=== PATIENT | female | born 1935 | race Caucasian/White ===

== ENCOUNTER 2017-03-24 05:05 | Inpatient (IN) | payer OTHER ==
[2017-03-11 13:53] LABS: BASOPHILS 0.4 %; BASOPHILS ABSOLUTE 0.03 10/3/uL (0.0-0.16); EOSINOPHILS 3.1 %; EOSINOPHILS ABSOLUTE 0.23 10/3/uL (0.0-0.53); IMMATURE GRANULOCYTES 0.3 %; IMMATURE GRANULOCYTES ABSOLUTE 0.02 10/3/uL (0.0-0.11); LYMPHOCYTES ABSOLUTE 1.55 10/3/uL (0.67-4.30); MEAN CORPUS HGB CONC 32.3 g/dL (32.0-36.0); MEAN PLATELET VOLUME 9.8 fL (9.2-13.0); MONOCYTES 7.7 %; MONOCYTES ABSOLUTE 0.57 10/3/uL (0.21-1.20); NEUTROPHILS 67.5 %; NEUTROPHILS ABSOLUTE 4.99 10/3/uL (2.02-8.40); PLATELET COUNT 224 10/3/uL (150-400); RBC DISTRIBUTION WIDTH 14.1 % (12.0-16.0); RED CELL COUNT 4.13 10/6/uL (4.0-5.6)
[2017-03-11 13:55] LABS: HEMOGLOBIN 12.6 g/dL (12.0-16.0); MANUAL DIFF NO %; MEAN CORPUSCULAR HEMOGLOB 30.5 pg (26.0-34.0); MEAN CORPUSCULAR VOLUME 94.4 fL (80-100); WHITE BLOOD CELLS 7.4 10/3/uL (4.5-10.5)
[2017-03-11 13:58] LABS: INTERNATIONAL NORMAL RATI 0.9 UNITS (-)
[2017-03-11 14:00] LABS: ASCORBIC ACID (UR NOT ORDER) NEG (NEG); BILIRUBIN, URINE NEGATIVE (NEG); KETONE, URINE NEGATIVE (NEG); LEUKOCYTE ESTERASE(NOT OR LARGE (NEG); PROTIME (NOT ORD) 12.2 SEC (12.0-14.5); WBC (NOT ORDERED) (RFLEX) 16 (0-5)
[2017-03-11 14:19] LABS: A/G RATIO 1.4 (0.7-1.9); ALBUMIN 4.1 G/DL (3.5-5.0); ALKALINE PHOSPHATASE 45 U/L (45-117); BUN (BLOOD UREA NITROGEN) 16 MG/DL (6-23); CALCIUM, SERUM 10.4 MG/DL (8.5-10.4); CHLORIDE, SERUM 102 MMOL/L (96-112); CREATININE 1.02 MG/DL (0.55-1.02); GFR AFRICAN AMERICAN 59 ML/MIN (>=60); GFR NON AFRICAN AMERICAN 51 ML/MIN (>=60); POTASSIUM, SERUM 4.7 MMOL/L (3.5-5.3); SGOT(AST) 16 U/L (5-40); SGPT(ALT) 24 U/L (5-65); SODIUM, SERUM 139 MMOL/L (135-148); TOTAL BILIRUBIN 0.4 MG/DL (0-1.2); TOTAL PROTEIN 7.1 G/DL (6.0-8.5)
[2017-03-11 14:20] LABS: CO2 (CARBON DIOXIDE) 32 MMOL/L (24-34); GLUCOSE, SERUM 85 MG/DL (60-99)
--- NOTE | ~2017-03-24 | DS ---
Discharge Summary [facility] [address] [place]. [address] NAME: TODD LANZA : 34 STATUS : DIS IN PAT#: [id number] AGE: 81 ADM/REG DATE : 03/24/17 MR#: [id number] REPORT SERV DATE: 04/08/17 DICTATED BY: BARB HAYNES DATE: 04/07/17 REPORT STATUS : Draft TRANSCRIBED BY: CAITLYN DATE: 04/07/17 Data Collection from hospitalization DISCHARGE DIAGNOSES: 1. Severe left knee degenerative joint disease. 2. Hypertension. 3. Diabetes. 4. Gastric ulcers. 5. Hypercholesterolemia. 6. Hypothyroidism. 7. Gastroesophageal reflux disease. CONSULTATIONS: None. PROCEDURES PERFORMED: Left posterior stabilized total knee replacement, cemented, 03/24/2017. PATHOLOGY: Bone and soft tissue, left knee joint arthroplasty - degenerative joint disease. DISCHARGE MEDICATIONS: Cymbalta 60 mg every morning, Nexium 40 mg every evening, [place] 7.5/325 one to two tablets every 4 to 6 hours as needed, Lantus 35 units subcutaneously twice a day, Humalog as instructed, levothyroxine 88 mcg every morning, Prinivil 20 mg twice a day, Crestor 10 mg at bedtime, Senokot one tablet at bedtime as needed, and Coumadin 2.5 mg daily. CONDITION ON DISCHARGE: Stable. DISPOSITION: The patient was discharged home on an 1800-calorie diabetic diet with activities as instructed. She would follow up with ak, 04/07/2017. She would follow up at the [facility] for physical therapy, 03/31/2017, and lab work, 03/31/2017. HOSPITAL COURSE: This is an 81-year-old female who has a long history of severe left knee pain. She denies any history of injury to the knee. The pain is located in the medial and lateral aspects of the knee. X-rays had revealed severe left knee degenerative joint disease. Treatment options were discussed, and it was elected to proceed with surgical intervention. She was admitted to the hospital at this time for further evaluation and treatment. Upon admission, she was taken to the operating room where she underwent the above-mentioned procedure. She tolerated this well, and there were no complications. On postop day #1, she was up sitting in a bedside chair. RAD hose were in place. Blood pressure was controlled. She was evaluated by Occupational and Physical Therapy. On postop day #2, she was feeling well but did have some dizziness, fatigue, and did not feel very well. She was transfused one unit of packed red blood cells. Discharge planning was performed. On 03/27/2017, she was alert and cooperative. Discharge instructions were given. Due to her improved and stable condition, she was discharged home with the above-stated instructions. Discharge Summary [address] [address] NAME: TODD LANZA : 34 STATUS : DIS IN PAT#: [id number] AGE: 81 ADM/REG DATE : 03/24/17 MR#: [id number] REPORT SERV DATE: 04/08/17 DICTATED BY: BARB HAYNES DATE: 04/07/17 REPORT STATUS : Draft TRANSCRIBED BY: CAITLYN DATE: 04/07/17 Information collected by: Rupa Evans I submit the above information as my discharge summary. CHARO/CAITLYN Syeda Haynes M.D. / [id number] CC: Prem Nascimento M.D.
--- NOTE | ~2017-03-24 | OP ---
Record Of Operation [facility] [address] [place]. [address] NAME: TODD LANZA : 34 STATUS : ADM IN PAT#: [id number] AGE: 81 ADM/REG DATE : 03/24/17 MR#: [id number] REPORT SERV DATE: 03/24/17 DICTATED BY: BARB HAYNES DATE: 03/24/17 REPORT STATUS : Draft TRANSCRIBED BY: MODRao DATE: 03/24/17 DATE OF PROCEDURE: 03/24/2017 PREOPERATIVE DIAGNOSIS: Severe left knee degenerative joint disease. POSTOPERATIVE DIAGNOSIS: Severe left knee degenerative joint disease. OPERATION: Left posterior stabilized total knee replacement, cemented. SIDE: Left. SIZE: See chart. ANESTHESIA: See chart. ESTIMATED BLOOD LOSS: About 10 mL. TOURNIQUET TIME: Approximately 1 hour and 10 minutes. COMPLICATIONS: None. SPECIMENS: Articular surfaces. PROCEDURE IN DETAIL: The patient was appropriately identified and marked. The operative side agreed with the consent form and it was checked by all members of the surgical team. The patient was taken to the operating room and anesthesia was induced per the anesthesiologist. The patient was carefully transferred to the operating table without incident. The patient received appropriate prophylactic antibiotics and a Luz catheter was placed in the standard sterile technique. The patient was then carefully positioned, padded, prepped and draped in the normal sterile fashion. The operative leg had been appropriately identified and checked by all members of the operating team against the consent form and found to be the correct limb. The patient's lower extremity was then exsanguinated with an Carlito wrap and a tourniquet was inflated to 350 mm/Hg. Sharp dissection was carried out through a straight midline longitudinal incision and electrocautery through the fat. Sharp quad splitting approach was carried out between about the medial 10 percent of the tendon and the lateral 90 percent of the tendon and down around the medial aspect of the patella and then 1 cm medial to the tibial tubercle. The patella was carefully everted and the posterior fat pad was excised and gentle MCL elevation was carried out off the proximal medial tibia subperiosteally. IM guide was placed in the distal femur after using the appropriate drill. The distal femoral cutting guide was held with 2 pins and the distal cut made. Meniscal fragments and the ACL and the PCL were excised with electrocautery, carefully staying anterior to the posterior fat pad. The proximal tibial alignment guide was set appropriately and the proximal tibial cut made. Spacer block verified full extension with excellent mediolateral balance. Sizing guide was used to place 2 drill holes in the distal femur and the four-in-one cutting block was then placed, impacted and checked Record Of Operation [facility] [address] [place]. [address] NAME: TODD LANZA : 34 STATUS : ADM IN PAT#: [id number] AGE: 81 ADM/REG DATE : 03/24/17 MR#: [id number] REPORT SERV DATE: 03/24/17 DICTATED BY: BARB HAYNES DATE: 03/24/17 REPORT STATUS : Draft TRANSCRIBED BY: CAITLYN DATE: 03/24/17 to be sure it would not notch with an mariaelena wing and it was held with 2 pins. The anterior cut, posterior cut, anterior chamfer and posterior chamfer cuts were made. The pins were removed and the block was removed. A posterior release was carried out with a curved 3/4 inch osteotome staying right on the bone posteriorly. The box-cut guide was then placed, impacted and held with 2 pins and a reciprocating saw was used to cut out the box. With the trial components in place, there was excellent medial/lateral balance. The patella was then measured with a caliper, cut first with an oscillating saw and then reamed with a patella reamer. With the trial patella in place, there was excellent patellar tracking. Rotation was marked on the tibia and the tibia prepared with a drill and stamp chisel. All surfaces were then copiously irrigated with pulsatile lavage, carefully dried and then vacuum-mixed cement was pressurized with a cement gun in a doughy phase. The tibial component was placed, impacted and excess cement was removed. The cement was then pressurized in the femur and placed on the posterior runners of the femoral component, which was placed, impacted and excess cement removed and the knee was brought out into extension on a trial spacer. The cement was then pressurized in the patella. Patellar component was then placed, clamped and excess cement was removed. Once all cement was hardened, the knee was taken through range of motion. Further extruded cement was removed with a small osteotome. Then based on the trial inserts, we decided on the actual insert, which was placed in the standard fashion and held with a locking mechanism. The knee was then copiously irrigated and then closed in a layered fashion over a medium Hemovac drain superolaterally with interrupted #1 in the deep fascia, 2-0 subcutaneous and nadya in the skin. The wounds were dressed sterilely and the tourniquet was deflated. The patient was then awakened and taken to the postanesthesia care unit without incident. All counts were correct at the end of the case. YULIB/CAITLYN Syeda Haynes M.D. / [id number] CC: Syeda Haynes M.D.
[~2017-03-24 05:05] MED LIST: ACET500CAP PO; ADVIL PO; ATIVAN2 MG PO; CRESTOR10 PO; CYMBALTA60 PO; DOXEPIN HCL150 MG PO; FORTAMET500 MG PO; GLUCPH PO; HUMALOGPEN SC; IND25 PO; LANTUS SC; LEVOTHYROXIN100 MCG PO; LEVOTHYROXIN88 MCG PO; MIDRIN PO; MULTIPLE VIT PO; NEXIUM40 PO; NIASPAN500 PO; OGEN.625 PO; PRIN20 PO; PROTEIN SUPPLEMENT PO; SENOKOTS PO; SENTAB PO; SYN075 PO; ZOL100 PO
[2017-03-25 04:56] LABS: INTERNATIONAL NORMAL RATI 1.1 UNITS (-); PROTIME (NOT ORD) 13.6 SEC (12.0-14.5)
[2017-03-25 05:01] LABS: HEMATOCRIT 26.8 % (36.0-48.0); HEMOGLOBIN 9.2 g/dL (12.0-16.0)
[2017-03-25 05:06] LABS: BUN (BLOOD UREA NITROGEN) 16 MG/DL (6-23); CALCIUM, SERUM 9.5 MG/DL (8.5-10.4); CHLORIDE, SERUM 101 MMOL/L (96-112); CO2 (CARBON DIOXIDE) 27 MMOL/L (24-34); CREATININE 1.08 MG/DL (0.55-1.02); GFR AFRICAN AMERICAN 55 ML/MIN (>=60); GFR NON AFRICAN AMERICAN 48 ML/MIN (>=60); GLUCOSE, SERUM 118 MG/DL (60-99); POTASSIUM, SERUM 4.6 MMOL/L (3.5-5.3); SODIUM, SERUM 135 MMOL/L (135-148)
[2017-03-26 06:57] LABS: INTERNATIONAL NORMAL RATI 1.1 UNITS (-); PROTIME (NOT ORD) 13.9 SEC (12.0-14.5)
[2017-03-26 07:05] LABS: HEMATOCRIT 22.8 % (36.0-48.0)
[2017-03-27 05:31] LABS: BASOPHILS 0.1 %; BASOPHILS ABSOLUTE 0.01 10/3/uL (0.0-0.16); EOSINOPHILS 2.7 %; EOSINOPHILS ABSOLUTE 0.19 10/3/uL (0.0-0.53); HEMATOCRIT 27.3 % (36.0-48.0); HEMOGLOBIN 9.3 g/dL (12.0-16.0); IMMATURE GRANULOCYTES 0.7 %; IMMATURE GRANULOCYTES ABSOLUTE 0.05 10/3/uL (0.0-0.11); LYMPHOCYTES ABSOLUTE 1.49 10/3/uL (0.67-4.30); MANUAL DIFF NO %; MEAN CORPUS HGB CONC 34.1 g/dL (32.0-36.0); MEAN CORPUSCULAR HEMOGLOB 30.5 pg (26.0-34.0); MEAN CORPUSCULAR VOLUME 89.5 fL (80-100); MEAN PLATELET VOLUME 9.6 fL (9.2-13.0); MONOCYTES 10.8 %; MONOCYTES ABSOLUTE 0.77 10/3/uL (0.21-1.20); NEUTROPHILS 64.7 %; NEUTROPHILS ABSOLUTE 4.59 10/3/uL (2.02-8.40); PLATELET COUNT 159 10/3/uL (150-400); RBC DISTRIBUTION WIDTH 15.1 % (12.0-16.0); RED CELL COUNT 3.05 10/6/uL (4.0-5.6); WHITE BLOOD CELLS 7.1 10/3/uL (4.5-10.5)
[2017-03-27 05:33] LABS: INTERNATIONAL NORMAL RATI 1.1 UNITS (-); PROTIME (NOT ORD) 14.1 SEC (12.0-14.5)
[2017-03-27 05:39] LABS: BUN (BLOOD UREA NITROGEN) 16 MG/DL (6-23); CALCIUM, SERUM 9.1 MG/DL (8.5-10.4); CHLORIDE, SERUM 101 MMOL/L (96-112); CO2 (CARBON DIOXIDE) 29 MMOL/L (24-34); CREATININE 0.81 MG/DL (0.55-1.02); GFR AFRICAN AMERICAN 78 ML/MIN (>=60); GFR NON AFRICAN AMERICAN 68 ML/MIN (>=60); GLUCOSE, SERUM 108 MG/DL (60-99); POTASSIUM, SERUM 4.1 MMOL/L (3.5-5.3); SODIUM, SERUM 136 MMOL/L (135-148)
[2017-03-27] MEDS ORDERED: C25 PO (15:27)
[2017-03-27] MEDS ORDERED: NORCO1 TA2 PO (15:27)
== END 2017-03-27 16:14 | disposition home or self-care (01) | DRG 470 ==
LOC: SDC/OF 05:05 → PACU 09:17 → 3SO 14:19
PROVIDERS: Specialist
PROC: 0SRD0J9 Replacement of Left Knee Joint with Synthetic Substitute, Cemented, Open Approach (ICD-10-PCS; principal; 2017-03-24 06:30)
DX: M17.12 Unilateral primary osteoarthritis, left knee (principal); E11.9 Type 2 diabetes mellitus without complications; D62 Acute posthemorrhagic anemia; I10 Essential (primary) hypertension; E78.5 Hyperlipidemia, unspecified; E03.9 Hypothyroidism, unspecified; K21.9 Gastro-esophageal reflux disease without esophagitis; F32.9 Major depressive disorder, single episode, unspecified
CPT/HCPCS: 36415; 71020; 80048; 80053; 81001; 82962; 85014; 85018; 85025; 85610; 86850; 86870; 86900; 86901; 86902; 86905; 86920; 86922; 87077; 87086; 87186; 87641; 88305; 88311; 93005; 97110-GP; 97116-GP; 97161-GP; 97165-GO; 97530-GO; A9270-GY; C1776; J0690; J1885; J2250; J2274; J2370; J2405; J2795; J3010; J3370; P9016